=== PATIENT | female | born 1940 | race Caucasian/White ===

== ENCOUNTER 2017-09-25 06:50 | Inpatient (IN) ==
[2017-09-20 11:15] LABS: Basophils # (Auto) 0 K/mcL (0.0-0.3); Basophils % (Auto) 0.6 % (0.0-2.0); Eosinophils # (Auto) 0.2 K/mcL (0.0-0.7); Granulocytes % (Auto) 69.4 % (38.0-78.0); Lymphocytes # (Auto) 1.4 K/mcL (1.5-4.8); Lymphocytes % (Auto) 21.5 % (15.5-49.0); Mean Cell Volume 92.8 fL (80.0-100.0); Mean Corpuscular HGB Conc 33.3 g/dL (31.0-36.0); Mean Corpuscular Hemoglobin 30.9 pg (26.0-34.0); Monocytes # (Auto) 0.4 K/mcL (0.1-0.9); Monocytes % (Auto) 5.5 % (1.0-12.0); Platelet Count 243 K/mcL (140-440); RBC 4.03 M/mcL (4.00-5.20)
[2017-09-20 11:16] LABS: Appearance,Urine HAZY; Bacteria,Urine 0 /hpf (0); Bilirubin,Urine NEG (NEG); Color,Urine YELLOW; Glucose,Urine (UA) NEGATIVE (NEG); Leukocyte Esterase,Urine 250 /uL (NEG); Mucus,Urine MOD /hpf (0); Protein,Urine NEG (NEG); Specific Gravity,Urine 1.027 (1.000-1.035); Urine Blood NEG mg/dL (<0.03); Urine RBC 0 /hpf (0-1); Urine Squamous Epithelial Cell 12 /hpf (0-4); Urine Transitional Epi Cells 2 /hpf (0-2); Urine WBC 3 /hpf (0-4); Urobilinogen,Urine NEG (NEG)
[2017-09-20 11:40] LABS: Blood Urea Nitrogen 16 mg/dl (8-23)
[~2017-09-25 06:50] MED LIST: PREGABALIN 75 MG CAPSULE PO SCH; ceFAZolin 1 GM VIAL IV SCH; oxyCODONE 10 MG TAB.ER.12H PO SCH
[2017-09-25] MEDS ORDERED: CELECOXIB 200 MG CAPSULE PO SCH (08:00)
[2017-09-25] MEDS ORDERED: TRANEXAMIC ACID 1,000 MG/10 ML VIAL IV ONE (09:40)
[2017-09-25] MEDS ORDERED: ePHEDrine 50 MG/ML AMPUL IV ONE (09:40)
[2017-09-25] MEDS ORDERED: LIDOCAINE HCL/PF 100 MG/5 ML SYRINGE IV ONE (09:40)
[2017-09-25] MEDS ORDERED: ONDANSETRON 4 MG/2 ML VIAL IV ONE (09:40)
[2017-09-25] MEDS ORDERED: DEXAMETHASONE 10 MG/ML VIAL IV ONE (09:40)
[2017-09-25] MEDS ORDERED: MIDAZOLAM 5 MG/5 ML VIAL IV ONE (09:40)
[2017-09-25] MEDS ORDERED: PROPOFOL 200 MG/20 ML VIAL IV ONE (09:40)
[2017-09-25] MEDS ORDERED: GENTAMICIN SULFATE 800 MG/20 ML VIAL IR ONE (10:12)
[2017-09-25] MEDS ORDERED: IPRATROPIUM/ALBUTEROL 3 ML AMPUL.NEB NEB PRN (10:55)
[2017-09-25] MEDS ORDERED: NALOXONE HCL 0.4 MG/ML VIAL IV PRN (10:55)
[2017-09-25] MEDS ORDERED: LACTATED RINGERS 250 ML IV PRN (10:55)
[2017-09-25] MEDS ORDERED: FLUMAZENIL 0.1 MG/ML ML IV PRN (10:55)
[2017-09-25] MEDS ORDERED: KETOROLAC 30 MG/ML VIAL IV PRN ×2 (10:55→11:07)
[2017-09-25] MEDS ORDERED: PROMETHAZINE 25 MG/ML VIAL IV PRN (10:55)
[2017-09-25] MEDS ORDERED: ONDANSETRON 4 MG/2 ML VIAL IV PRN ×2 (10:55→11:07)
[2017-09-25] MEDS ORDERED: ACETAMINOPHEN 1,000 MG/100 ML BOTTLE IV ONE (10:55)
[2017-09-25] MEDS ORDERED: BENZOCAINE/MENTHOL 1 LOZENGE PO PRN ×2 (10:55→11:07)
[2017-09-25] MEDS ORDERED: diphenhydrAMINE 50 MG/ML VIAL IV PRN (10:55)
[2017-09-25] MEDS ORDERED: fentaNYL 100 MCG/2 ML VIAL IV PRN (10:55)
[2017-09-25] MEDS ORDERED: MEPERIDINE 25 MG/ML SYRINGE IV PRN (10:55)
[2017-09-25] MEDS ORDERED: LACTATED RINGERS 1,000 ML IV SCH (11:00)
--- NOTE | 2017-09-25 11:06 | Brief Operative Note ---
Date of procedure: 09/25/17 Pre-op diagnosis: right hip oa Post-op diagnosis: same Procedure: right total hip arthroplasty Grafts/Implants: Yes Anesthesia: spinal Complications: none Surgeon: Baldev Montalvo Fur Farmer: Vanda Castaneda Estimated blood loss (cc): 150 Specimens Removed/Pathology: none sent Condition: stable Disposition: PACU
[2017-09-25] MEDS ORDERED: POLYETHYLENE GLYCOL 3350 17 GM PACKET PO PRN (11:07)
[2017-09-25] MEDS ORDERED: DEXTROSE 50% 50 ML VIAL IV PRN (11:07)
[2017-09-25] MEDS ORDERED: BISACODYL 10 MG SUPP.RECT PR PRN (11:07)
[2017-09-25] MEDS ORDERED: ONDANSETRON ODT 4 MG TABLET SL PRN (11:07)
[2017-09-25] MEDS ORDERED: FLEETS ADULT ENEMA PR PRN (11:07)
[2017-09-25] MEDS ORDERED: METHOCARBAMOL 750 MG TABLET PO PRN (11:07)
[2017-09-25] MEDS ORDERED: TRANEXAMIC ACID 1,000 MG/10 ML VIAL IV SCH (11:07)
[2017-09-25] MEDS ORDERED: DEXTROSE 31 GM ORAL.SUSP PO PRN (11:07)
[2017-09-25] MEDS ORDERED: MAGNESIUM HYDROXIDE 30 ML ORAL.SUSP PO PRN (11:07)
--- NOTE | 2017-09-25 11:50 | Operative Note ---
DATE OF OPERATION: 09/25/2017 PREOPERATIVE DIAGNOSIS: Degenerative joint disease, right hip. POSTOPERATIVE DIAGNOSIS: Degenerative joint disease, right hip. PROCEDURE: Right total hip arthroplasty. SURGEON: Tremayne Montalvo M.D. HYDRAULIC CONTROLS TECHNICIAN SURGEON: Vanda Castaneda PA-C. ANESTHESIA: Spinal with LMA assist. ESTIMATED BLOOD LOSS: 150 mL. COMPLICATIONS: None noted. SPECIMENS REMOVED: None. DRAINS: None. IMPLANTS: DePuy Reading Hole Eliminator; DePuy [place] Gription acetabular shell, 52 mm; DePuy [place] Altrx polyethylene acetabular liner, lipped, 32 x 52; DePuy Tri-Lock BPS femoral stem with Gription, size 2, high-offset; DePuy Biolox ceramic femoral head +1, 32 mm diameter. INDICATIONS: The patient has had a longstanding history of worsening pain in the hip that has failed conservative treatment. Radiographs have confirmed advanced degenerative joint disease. After a long discussion about treatment options, the patient elected to proceed with a hip arthroplasty. The risks and benefits were discussed with the patient in detail including, but not limited to, the risks of anesthesia, problems with the heart or lungs related to anesthesia, infection, compromise or injury to the nerves and blood vessels, deep venous thrombosis, pulmonary embolism, pneumonia, continued pain after surgery, worsening pain or symptoms after surgery, swelling, loss of motion, instability, leg length discrepancy, and need for repeat surgery. DESCRIPTION OF PROCEDURE: The patient was seen in pre-anesthesia waiting room where all questions were answered and the correct side and site were identified and marked. The patient was then brought to the operating room and administered the anesthetic and given pre-operative antibiotics. A time-out was then called. The patient was placed in the lateral decubitus position with all prominences well-padded using the [place] frame and the extremity was prepped and draped in the usual sterile fashion. Anesthesia gave the patient 1 gm of tranexamic acid via an intravenous route. A standard posterior approach was made. We dissected through the skin and subcutaneous tissue to the deep fascia. The deep fascia was split in line with the incision and a Charnley retractor was placed. We exposed, tagged, and incised the short external rotators and piriformis tendon and retracted them posteriorly to help protect the sciatic nerve which was palpated throughout the case. We then performed a T-capsulotomy and tagged the capsule edges. Prior to dislocating the hip, we set a length and offset gauge from a Steinmann pin in the iliac wing to a alison on the greater trochanter. The hip was then dislocated and a femoral neck osteotomy was performed to the pre-surgical templated level off the lesser trochanter. The head was removed and sized. We next turned our attention to the acetabulum. Retractors were placed for optimal visualization. A complete labral excision was performed. The capsule was preserved for later closure. We began reaming using anatomic landmarks with the DePuy [place] acetabular system. We medialized the cup and reamed up to provide good fill and coverage of the trial. When the trial was stable and appropriately positioned with approximately 20 degrees of anteversion and 45 degrees of abduction, we impacted the DePuy [place] cup and placed a cancellous screw in the posterior-superior quadrant. Osteophytes were removed from around the shell. We placed the trial liner and turned our attention to the femur. We placed retractors for visualization, internally rotated the femur, and established intramedullary access. We broached using the DePuy Tri-Lock stem to a stable platform medial, lateral, and rotationally with the appropriate version. We then performed a calcar reaming off the broach. Trials were then placed and optimized for leg length and stability. We used the leg length and offset guide to confirm our trials. Best stability, length, and offset characteristics were obtained with these sizes. We removed all trials and impacted the polyethylene acetabular liner in a standard fashion after a thorough irrigation. We then impacted the femoral stem to its broached location and placed the head. Final reduction was performed. Again, good stability, leg length, and offset characteristics were noted. We irrigated with three liters of antibiotic saline. We closed the capsule with #2 FiberWire. We closed the fascia with a combination of #2 Stratafix and #0 Vicryl. We closed the subcutaneous tissue and skin in layers out to rfay in the skin. A sterile pressure dressing and abduction wedge was applied. All needle and sponge counts were correct. The patient was transferred to the recovery room in stable condition. Kyle Job ID: [id number] Doc ID: [id number] Tremayne Montalvo MD
[2017-09-25] MEDS ORDERED: PRAMIPEXOLE 1 MG TABLET PO SCH (12:00)
--- NOTE | 2017-09-25 12:18 | XRay Report ---
CLINICAL INFORMATION: Status post right total hip arthroplasty TECHNIQUE: AP pelvis. AP and lateral right hip COMPARISON: Preoperative evaluation dated 07/13/2017 FINDINGS: Status post right total hip arthroplasty. Alignment is anatomic. Pelvis is negative. No fracture or lytic lesion. Degenerative disc disease in the lower lumbar spine. Mild degenerative joint disease in the left hip. IMPRESSION: Status post right total hip arthroplasty Interpreted and Authenticated by: Baldev Prado 09/25/17
[2017-09-25] MEDS: 0.9 % SODIUM CHLORIDE 10 ML SYRINGE IV SCH ×2 (14:05→20:56)
[2017-09-25] MEDS: 0.9 % SODIUM CHLORIDE 1,000 ML IV SCH ×2 (14:05→21:34)
[2017-09-25] MEDS: PRAMIPEXOLE 0.25 MG TABLET PO SCH ×2 (15:33→19:26)
[2017-09-25] MEDS: INSULIN LISPRO 1 UNIT/0.01 ML UNIT SQ SCH ×3 (15:33→19:31)
[2017-09-25] MEDS: HYDROcodone/APAP 10/325MG TABLET PO PRN ×2 (16:13→20:51)
[2017-09-25] MEDS: ceFAZolin 1 GM VIAL IV SCH (17:15)
[2017-09-25] MEDS: metFORMIN 500 MG TABLET PO SCH (17:18)
[2017-09-25] MEDS: DOCUSATE SODIUM 100 MG CAPSULE PO SCH (19:27)
[2017-09-25] MEDS: ASPIRIN 325 MG ENTERIC COATED TABLET PO SCH (19:27)
[2017-09-25] MEDS ORDERED: ROSUVASTATIN 10 MG TABLET PO SCH (21:00)
[2017-09-25] MEDS ORDERED: SENNOSIDES 1 TABLET PO SCH (21:00)
[2017-09-25] MEDS ORDERED: LOSARTAN 50 MG TABLET PO SCH (21:00)
[2017-09-25] MEDS ORDERED: GABAPENTIN 300 MG CAPSULE PO SCH (21:00)
[2017-09-25] MEDS ORDERED: PRAMIPEXOLE DI HCL 4.5 MG PO SCH (21:00)
[2017-09-26] MEDS: HYDROcodone/APAP 10/325MG TABLET PO PRN (00:48)
[2017-09-26] MEDS: ceFAZolin 1 GM VIAL IV SCH (00:48)
[2017-09-26] MEDS ORDERED: CELECOXIB 200 MG CAPSULE PO SCH (05:00)
[2017-09-26] MEDS: 0.9 % SODIUM CHLORIDE 10 ML SYRINGE IV SCH (05:07)
[2017-09-26] MEDS: 0.9 % SODIUM CHLORIDE 1,000 ML IV SCH (05:07)
--- NOTE | 2017-09-26 06:24 | Discharge Summary ---
Providers - Providers Patient information: Note initiated : 09/26/17 at 6:21 am Service Date, if different from initiated Date: [] Patient: Nicole Sherman 77 y/o F admitted on 09/25/17 for Arthroplasty, Total Hip - Right. Chief Complaint: [POD #1 s/p right CRISTINA Patient doing very well this morning. Reports minimal pain in her right hip. Ambulating okay with walker. States that hydrocodone 10mg is too strong, would like something less potent. Denies SOB, CP, numbness, tingling or calf pain in the extremities. No other questions or concerns today.] Discharge date: 09/26/17 Hospitalization Hospital course: Patient was brought to the OR yesterday for a right CRISTINA which went on without complication or event. She was admitted overnight for post op pain management and observation. She is ambulating and urinating without difficulty. She will d/ c to home today and follow up in the office in 10-14 days for post op appointment. Discharge diagnosis: hip osteoarthritis Exam - Exam Incision healing: Yes Incision draining: No Incision red: No Incision swollen: No Incision inflamed: No Clean and dry: Yes Weight bearing status: as tolerated Range of motion: 120 hip flexion. Full AROM b/l knees, ankles, feet Ortho Discharge - CRISTINA - Patient Instructions Diet: Regular Diet Activity: activity as tolerated, ambulate with assistive device, weight bearing as tolerated Total Hip Protocol: Follow activity instructions as provided by Physical Therapy. Dressing Care: May shower in 2 days, Other (dermabond) - Follow Up Plan Follow Up Appointments: Vanda Castaneda PA-C [Physician Record Filing Clerk] - Disposition: Home, Self-Care Prognosis: Good Rehab Potential: Good I certify that the patient requires SNF services: No Overall status at discharge: patient is progressing back to baseline - Orders For Discharge Prescriptions: Aspirin [Ecotrin] 325 mg PO BID #60 tab.ec Hydrocodone/APAP 7.5/325Mg [[place] 7.5-325Mg] 1 - 2 tab PO Q6HP PRN #60 tab PRN Reason: Pain Additional Discharge Orders: Physical Therapy at Discharge - CRISTINA Location: Determined By Patient Pending Studies Resuscitation Status Full Code Diet Regular Diet Start SunSep 25 1111 Hydrocodone Bitart/Acetaminophen ([place] 10/325mg) 0 tab PO Q4HP PRN PRN Reason: PAIN LEVEL 3-6 Last Admin: 09/26/17 00:48 Dose: 1 tab Admin: 09/25/17 20:51 Dose: 1 tab Admin: 09/25/17 16:13 Dose: 1 tab Aspirin (Ecotrin) 325 mg PO BID [facility] Last Admin: 09/25/17 19:27 Dose: 325 mg Diagnostic Test (Pha) (Accu-Chek) 1 each FS ACHS [facility] Last Admin: 09/25/17 19:27 Dose: 1 each Admin: 09/25/17 17:16 Dose: 1 each Admin: 09/25/17 14:04 Dose: 1 each Docusate Sodium (Colace) 100 mg PO BID [facility] Last Admin: 09/25/17 19:27 Dose: 100 mg Gabapentin (Neurontin) 300 mg PO [facility] Last Admin: 09/25/17 19:27 Dose: 300 mg Sodium Chloride (Sodium Chloride 0.9%) 1,000 mls @ 125 mls/hr IV .Q8H [facility] Last Admin: 09/26/17 05:07 Dose: Not Given Admin: 09/25/17 21:34 Dose: 125 mls/hr Infusion: 09/25/17 21:34 Dose: 125 mls/hr Admin: 09/25/17 14:05 Dose: 125 mls/hr Insulin Human Lispro (Humalog) 0 unit SQ [facility] PRN Reason: Protocol Last Admin: 09/25/17 19:31 Dose: 4 unit Admin: 09/25/17 17:17 Dose: 8 unit Admin: 09/25/17 15:33 Dose: Losartan Potassium (Cozaar) 100 mg PO [facility] Last Admin: 09/25/17 19:27 Dose: 100 mg Metformin HCl (Glucophage) 1,000 mg PO BIDCC [facility] Last Admin: 09/25/17 17:18 Dose: 1,000 mg Pramipexole Dihydrochloride (Mirapex) 1.5 mg PO TID [facility] Last Admin: 09/25/17 19:26 Dose: 1.5 mg Admin: 09/25/17 15:33 Dose: 1.5 mg Rosuvastatin Calcium (Crestor) 20 mg PO [facility] Last Admin: 09/25/17 19:27 Dose: Not Given Senna (Senokot) 2 tab PO [facility] Last Admin: 09/25/17 19:26 Dose: 2 tab Sodium Chloride (Saline Flush) 10 ml IV Q8 [facility] Last Admin: 09/26/17 05:07 Dose: Admin: 09/25/17 20:56 Dose: Not Given Admin: 09/25/17 14:05 Dose: Not Given Shift Summary 09/26/17 04:53 Shift Summary by Evelyn Weston Addendum entered by Evelyn Weston 09/26/17 05:08: no IV access d/t infiltration, edema noted but pt denied pain and refused restart d/t plans to d/c home today with family and friend Original Note: Addendum entered by Evelyn Weston 09/26/17 04:57: correction patient is receiving norco 10/325mg 1 tab but pt would like dose decreased if possible stating it makes her feel "loopy" Original Note: up w/SBA and FWW to BR, PVR minimal, amb. well, gait steady, DSG CDI to rt. hip , ice packs PRN, AVB and wedge used continuously per order while in bed, pt states she does cross her ankles constantly so prefers wedge use, medicated with lortab 7.5/325mg 1 tab approx. q4-5 hours which controls pain well, MIV infusing well will SL prior to shift change, uses IS well on own Initialized on 09/26/17 04:53 - END OF NOTE Exam Temp Pulse Resp BP Pulse Ox 97.8 F 82 18 120/64 91 09/26/17 04:00 09/26/17 04:00 09/26/17 04:00 09/26/17 04:00 09/26/17 04:00 - General physical appearance well developed, no distress - Cardiovascular Peripheral pulses: 2+: dorsalis pedis (L), dorsalis pedis (R), posterior tibialis (L), posterior tibialis (R) - Neurologic Present: normal sensation (all extremities NVI) - Psychiatric Present: oriented to time, oriented to person, oriented to place - Additional Findings hip x-ray right hip reviewed, shows CRISTINA in good position without fractures or other injuries. No other acute abnormalities are identified.
[2017-09-26] MEDS ORDERED: HYDROCODONE/APAP 7.5/325MG TABLET PO PRN (06:32)
[2017-09-26] MEDS: INSULIN LISPRO 1 UNIT/0.01 ML UNIT SQ SCH (07:16)
[2017-09-26] MEDS: metFORMIN 500 MG TABLET PO SCH (07:52)
[2017-09-26] MEDS: DOCUSATE SODIUM 100 MG CAPSULE PO SCH (08:24)
[2017-09-26] MEDS: ASPIRIN 325 MG ENTERIC COATED TABLET PO SCH (08:24)
[2017-09-26] MEDS: PRAMIPEXOLE 0.25 MG TABLET PO SCH (08:24)
[2017-09-26] MEDS ORDERED: PARoxetine 20 MG TABLET PO SCH (09:00)
[2017-09-26] MEDS ORDERED: PRAMIPEXOLE DI HCL 4.5 MG PO SCH (09:00)
[2017-09-26] MEDS ORDERED: PNEUMOCOCCAL 23-VAL P-SAC VAC 0.5 ML VIAL IM ONE (10:00)
== END 2017-09-26 11:00 | disposition home or self-care (01) | DRG 470 ==
LOC: MEDSUR 06:50
PROVIDERS: ADMIT Orthopaedic Surgery Sports Medicine; ATTEND Orthopaedic Surgery Sports Medicine

== ENCOUNTER 2017-11-08 07:00 | Observation (INO) ==
--- NOTE | 2017-11-08 07:20 | Emergency Department Note ---
SOB HPI - General Chief Complaint: Shortness of Breath/Dyspnea Stated Complaint: SOB Time Seen by Provider: 11/08/17 07:13 Source: patient Mode of arrival: wheelchair Limitations: no limitations - History of Present Illness This patient had right hip surgery a little over a month ago and developed an infection and has been getting an infusion of antibiotics. He is a little short of breath when lying down over the last couple of days and so patient sent her here before her infusion today. Said no cough. Some right leg edema on and off perhaps a little worse recently. No chest pain. She does have a history of COPD but has not been wheezing much except when she lies flat. No history of heart failure. - Related Data Home Medications Medication Instructions Recorded Confirmed losartan 100 mg tablet 100 mg PO HS 10/21/15 10/18/17 paroxetine 40 mg tablet 40 mg PO QDAY 10/21/15 10/18/17 rosuvastatin 20 mg tablet 20 mg PO HS 04/23/17 10/18/17 gabapentin 300 mg capsule 300 mg PO HS 90 Days #360 08/27/17 10/18/17 Diclofenac Sodium [Voltaren] 2 g TOPICAL BIDP PRN 09/20/17 10/18/17 metFORMIN [Glucophage] 1,000 mg PO BIDCC 09/20/17 10/18/17 Pramipexole [Mirapex] 1.5 mg PO TID 09/25/17 10/18/17 Sulfamethoxazole/Trimethoprim 1 each PO BID 10/16/17 10/18/17 [Bactrim Ds Tablet] Previous Rx's Medication Instructions Recorded Aspirin [Ecotrin] 325 mg PO BID #60 tab.ec 09/26/17 Hydrocodone/APAP 7.5/325Mg [[place] 1 - 2 tab PO Q6HP PRN #60 tab 09/26/17 7.5-325Mg] Vancomycin/0.9 % Sod Chloride 1 gm IV DAILY #60 plast..bag 10/17/17 [Vancomycin 1 G/100Ml-0.9% NaCl] cefTRIAXone NA/DEXTROSE,ISO 1 gm IV DAILY #42 [email or web address] 10/17/17 [Ceftriaxone 1 gm Piggyback] Allergies Allergy/AdvReac Type Severity Reaction Status Date / Time atorvastatin [From Lipitor] AdvReac Intermediate Muscle ache Verified 11/08/17 07:01 simvastatin AdvReac Intermediate Muscle ache Verified 11/08/17 07:01 benazepril AdvReac Mild Cough Verified 11/08/17 07:01 codeine AdvReac Mild Vomiting Verified 11/08/17 07:01 Review of Systems All systems ED: reviewed and negative except as stated. Past Medical History - Past Medical History [facility] Narrative: Medical History (Last Reviewed 08/27/17 @ 08:05 by Marylou Jean RN) Psoriasis (Acute) Inflammatory arthritis (Chronic) Positive ANATOLIY (antinuclear antibody) (Acute) Erosive osteoarthritis of both hands (Chronic) Encounter for long-term current use of high risk medication (Chronic) Arthralgia of hands, bilateral (Chronic) Osteoarthritis (Chronic) Pain in left hip (Chronic) Pain in hand (Chronic) Hypertension, benign (Chronic) Anxiety (Chronic) Esophageal reflux (Chronic) Impaired fasting glucose (Chronic) OSBALDO (obstructive sleep apnea) (Chronic) HSV infection (Chronic) Colonic polyp (Chronic) Kidney stone (Chronic) RLS (restless legs syndrome) (Chronic) Depression (Chronic) Hypertension (Chronic) Hypercholesterolemia (Chronic) Past Surgical History (Last Reviewed 08/27/17 @ 08:05 by Marylou Jean RN) Hx of shoulder surgery (Chronic) Family History (Last Reviewed 08/27/17 @ 08:05 by Marylou Jean RN) Father Malignant neoplasm of colon Eaton-Lambert syndrome Paternal grandmother Eaton-Lambert syndrome Malignant neoplasm of breast Medical history: Reports: hyperlipidemia, hypertension Surgical history ED: Reports: hip replacement, other (Recent right hip replacement) - Social History smoking status: Never smoker Alcohol use: Reports: Occasionally Drug use: Reports: none Physical Exam Limitations: no limitations General appearance: alert Head: atraumatic Eye: Present: normal appearance ENT: normal exam Neck: Present: normal inspection Chest: Present: normal inspection Respiratory: Present: normal lung sounds bilaterally Cardiovascular: Present: regular rate, normal rhythm, normal heart sounds Abdominal: Present: soft. Absent: distention, tenderness Extremities: Present: pedal edema, pretibial edema (On the right leg) Neurological: Present: alert Psychiatric: Present: normal affect, normal mood Skin: Present: warm, dry, intact Course Vital Signs Temperature 96.7 F L 11/08/17 07:01 Pulse Rate 79 11/08/17 07:01 Respiratory Rate 16 11/08/17 07:01 Blood Pressure 177/75 11/08/17 07:01 Pulse Oximetry (%) 96 11/08/17 07:01 Temperature 96.7 F L 11/08/17 07:01 Pulse Rate 78 11/08/17 08:51 Respiratory Rate 26 H 11/08/17 08:51 Blood Pressure 177/75 11/08/17 07:01 Pulse Oximetry (%) 94 11/08/17 08:51 Shortness of Breath/Dyspnea - [facility] Narrative Medical decision making narrative: Patient's chest x-ray was consistent with congestive heart failure and BNP is 900. Doppler of the right leg was negative for DVT. Heart failure is a new diagnosis for this patient. I discussed case with Dr. Almodovar and the patient will be admitted to telemetry for further evaluation and treatment. - Lab Data Lab results reviewed: Yes I reviewed the patient's lab results. Result diagrams: 11/08/17 07:33 11/08/17 07:33 Lab Results 11/08/17 11/08/17 11/08/17 Range/Units 07:33 07:33 07:33 WBC 5.4 (4.5-11.0) K/mcL RBC 3.32 L (4.00-5.20) M/mcL Hgb 9.5 L (12.0-15.0) g/dL Hct 29.7 L (36.0-48.0) % MCV 89.7 (80.0-100.0) fL MCH 28.6 (26.0-34.0) pg MCHC 31.9 (31.0-36.0) g/dL RDW 15.5 H (11.5-14.5) % Plt Count 242 (140-440) K/mcL MPV 7.4 (7.4-10.4) fL Gran % 68.7 (38.0-78.0) % Lymph % (Auto) 14.8 L (15.5-49.0) % [place] % (Auto) 9.9 (1.0-12.0) % Eos % (Auto) 5.9 (0.0-7.0) % Baso % (Auto) 0.7 (0.0-2.0) % Gran # 3.7 (1.8-8.0) K/mcL Lymph # (Auto) 0.8 L (1.5-4.8) K/mcL [place] # (Auto) 0.5 (0.1-0.9) K/mcL Eos # (Auto) 0.3 (0.0-0.7) K/mcL Baso # (Auto) 0 (0.0-0.3) K/mcL Sodium 142 (133-145) mmol/L Potassium 3.1 L (3.3-5.1) mmol/L Chloride 97 (96-108) mmol/L Carbon Dioxide 34 H (22-30) mmol/L Anion Gap 11.0 (8-16) BUN 7 L (8-23) mg/dl Creatinine 0.6 (0.6-1.1) mg/dl GFR Calculation 89 Glucose 152 H (70-105) mg/dL Calcium 8.6 (8.6-10.4) mg/dl Total Bilirubin 0.3 (0.0-1.0) mg/dL AST 16 (0-37) U/l ALT 14 (0-40) U/l Alkaline Phosphatase 77 (39-117) U/L Troponin T < 0.01 (0-0.03) ng/ml NT-Pro-B Natriuret Pep 919.2 H (0-450) pg/ml Total Protein 6.7 (5.9-8.4) gm/dL Albumin 4.1 (3.2-5.2) gm/dL Globulin 2.6 (2.2-3.7) gm/dL Albumin/Globulin Ratio 1.6 (1.0-2.3) - Radiology Data Radiology results reviewed: Yes I reviewed the patient's radiology results. Disposition Pt seen by NEWCOMER HOSTESS/PA only: No Clinical Impression: Congestive heart failure Disposition: Xfer As Inpt ([facility]) Condition: Good Referrals: Colleen Pittman MD [Primary Care Provider] - Time of Disposition: 08:58
[2017-11-08 08:15] LABS: Basophils # (Auto) 0 K/mcL (0.0-0.3); Basophils % (Auto) 0.7 % (0.0-2.0); Eosinophils # (Auto) 0.3 K/mcL (0.0-0.7); Eosinophils % (Auto) 5.9 % (0.0-7.0); Granulocytes % (Auto) 68.7 % (38.0-78.0); Lymphocytes # (Auto) 0.8 K/mcL (1.5-4.8); Lymphocytes % (Auto) 14.8 % (15.5-49.0); Mean Cell Volume 89.7 fL (80.0-100.0); Mean Corpuscular HGB Conc 31.9 g/dL (31.0-36.0); Mean Corpuscular Hemoglobin 28.6 pg (26.0-34.0); Monocytes # (Auto) 0.5 K/mcL (0.1-0.9); Monocytes % (Auto) 9.9 % (1.0-12.0); Platelet Count 242 K/mcL (140-440); RBC 3.32 M/mcL (4.00-5.20); Red Cell Distribution Width 15.5 % (11.5-14.5)
--- NOTE | 2017-11-08 08:32 | XRay Report ---
HISTORY: Reason for Exam:sob FINDINGS: There are mild generalized alveolar opacities in both lungs. Several curly B lines are present in the periphery of the right lower lobe. The heart is mildly enlarged. The pulmonary vessels are engorged. No pleural is present. There is a PICC line placed to the left arm into the superior vena cava. The tip of the catheter is looped at the level of the azygos arch. IMPRESSION: Congestive heart failure which has developed since 10/17/17 Interpreted and Authenticated by: Felix Hinojosa 11/08/17
[2017-11-08 08:37] LABS: ALT/SGPT 14 U/l (0-40); Albumin 4.1 gm/dL (3.2-5.2); Albumin/Globulin Ratio 1.6 (1.0-2.3); Alkaline Phosphatase 77 U/L (39-117); Blood Urea Nitrogen 7 mg/dl (8-23); proBNP 919.2 pg/ml (0-450)
--- NOTE | 2017-11-08 08:41 | Ultrasound Report ---
History: Shortness of breath, two months following hip replacement, evaluate leg for deep venous thrombosis Findings: There is normal augmentation and compressibility of the deep veins and greater saphenous vein from the groin through the calf. Doppler shows normal waveform patterns. No abnormal fluid collection is present. Impression: Normal exam, without evidence of deep venous thrombosis Interpreted and Authenticated by: Felix Hinojosa 11/08/17
[2017-11-08] MEDS ORDERED: ONDANSETRON 4 MG/2 ML VIAL IV ONE (08:43)
[2017-11-08] MEDS ORDERED: FUROSEMIDE 20 MG/2 ML VIAL IV ONE (08:57)
[2017-11-08] MEDS ORDERED: DICLOFENAC SODIUM 2% TOPICAL PRN (10:45)
[2017-11-08] MEDS ORDERED: VANCOMYCIN PER PHARMACY IV SCH (10:45)
[2017-11-08] MEDS ORDERED: DEXTROSE 31 GM ORAL.SUSP PO PRN (10:45)
[2017-11-08] MEDS ORDERED: DEXTROSE 50% 50 ML VIAL IV PRN (10:45)
[2017-11-08] MEDS ORDERED: ONDANSETRON 4 MG/2 ML VIAL IV PRN (10:45)
--- NOTE | 2017-11-08 10:51 | Internal Med History&Physical ---
Medical - H&P: HPI Patient information: Note initiated : 11/08/17 at 10:47 am Service Date, if different from initiated Date: [] Patient: Nicole Sherman a 77 y/o F admitted on 11/08/17 for Shortness of breath. Chief Complaint: [] History of present illness: Ms. Sherman is a 77 year old Female with h/o HTN, recent right hip septic arthritis , on IV ABX per ortho, presented to the ER today with complaints of breath that has been going on for the last week to 2 weeks. The patient notes that she has been short of breath at rest especially when she tries to lie down and sleep. She has to use extra number of pillows and wakes up feeling short of breath. The patient has intermittent dizziness especially when she tries to stand up. Otherwise she denies any other complaints. She denies any acute bilateral lower extremity edema, she has a right leg edema since she has had surgery on the right hip. She denies any palpitations chest pain or chest tightness. No syncope or presyncope-like symptoms. She denies any nausea vomiting abdominal pain. She has poor effort tolerance at baseline due to arthritis and recent hip surgery. She usually is just in the bed with minimal activity. But she has noticed that she is more breathless with activity compared to before. She denies any cough fever any GI or symptoms. No new skin rashes or arthralgias , she does have history of chronic osteoarthritis. Patient admits to having some depression which is reasonably controlled on oral medications denies any suicidal ideations. Given that her shortness of breath was acute she was sent to the emergency room for further evaluation. The patient notes that her pressures have been running high over the last couple weeks. The emergency room patient was hemodynamically stable, and saturation around 90 % on room air labs showed globin of 9.5, bnp 919 Chest x ray shows chf, new, EKG done in the ER shows non specific St wave changes ant and lateral leads, no significant change from previous ekg, trop is neg Pt is beign admitted to the hospital under obs status for new onset CHF. All systems: reviewed and no additional remarkable complaints except as stated ( As per HPI) Medical - H&P: PMH Medical history: Medical History (Last Reviewed 08/27/17 @ 08:05 by Marylou Jean RN) Psoriasis (Acute) Inflammatory arthritis (Chronic) Positive ANATOLIY (antinuclear antibody) (Acute) Erosive osteoarthritis of both hands (Chronic) Encounter for long-term current use of high risk medication (Chronic) Arthralgia of hands, bilateral (Chronic) Osteoarthritis (Chronic) Pain in left hip (Chronic) Pain in hand (Chronic) Hypertension, benign (Chronic) Anxiety (Chronic) Esophageal reflux (Chronic) Impaired fasting glucose (Chronic) OSBALDO (obstructive sleep apnea) (Chronic) HSV infection (Chronic) Colonic polyp (Chronic) Kidney stone (Chronic) RLS (restless legs syndrome) (Chronic) Depression (Chronic) Hypertension (Chronic) Hypercholesterolemia (Chronic) Surgical history: Past Surgical History (Last Reviewed 08/27/17 @ 08:05 by Marylou Jean RN) Hx of shoulder surgery (Chronic) Right surgery recent Pertinent family history: Family History (Last Reviewed 08/27/17 @ 08:05 by Marylou Jean RN) Father Malignant neoplasm of colon Eaton-Lambert syndrome Paternal grandmother Eaton-Lambert syndrome Malignant neoplasm of breast Medical - H&P: Meds Home Medications Medication Instructions Recorded Confirmed Type losartan 100 mg tablet 100 mg PO HS 10/21/15 11/08/17 History paroxetine 40 mg tablet 40 mg PO QDAY 10/21/15 11/08/17 History rosuvastatin 20 mg tablet 20 mg PO HS 04/23/17 11/08/17 History gabapentin 300 mg capsule 300 mg PO HS 90 Days #360 08/27/17 11/08/17 History Diclofenac Sodium [Voltaren] 2 g TOPICAL BIDP PRN 09/20/17 11/08/17 History metFORMIN [Glucophage] 1,000 mg PO BIDCC 09/20/17 11/08/17 History Pramipexole [Mirapex] 1.5 mg PO TID 09/25/17 11/08/17 History Aspirin [Ecotrin] 325 mg PO BID #60 tab.ec 09/26/17 11/08/17 Rx Vancomycin/0.9 % Sod Chloride 1 gm IV DAILY #60 plast..bag 10/17/17 11/08/17 Rx [Vancomycin 1 G/100Ml-0.9% NaCl] cefTRIAXone NA/DEXTROSE,ISO 1 gm IV DAILY #42 [email or web address] 10/17/17 11/08/17 Rx [Ceftriaxone 1 gm Piggyback] Allergies Allergy/AdvReac Type Severity Reaction Status Date / Time atorvastatin [From Lipitor] AdvReac Intermediate Muscle ache Verified 11/08/17 07:01 simvastatin AdvReac Intermediate Muscle ache Verified 11/08/17 07:01 benazepril AdvReac Mild Cough Verified 11/08/17 07:01 codeine AdvReac Mild Vomiting Verified 11/08/17 07:01 Medical - H&P: Exam - Constitutional Vitals: Temp Pulse Resp BP Pulse Ox 96.7 F L 106 H 18 159/72 90 11/08/17 07:01 11/08/17 10:28 11/08/17 10:28 11/08/17 10:28 11/08/17 10:28 Exam: GENERAL: The patient is a well-developed, well-nourished in no apparent distress. Is alert and oriented x3. VITAL SIGNS: Reviewed and as noted elsewhere. HEENT: Head is normocephalic and atraumatic. Extraocular muscles are intact. Pupils are equal, round, and reactive to light. Nares appeared normal. Mouth appears any without lesions. Mucous membranes are moist. NECK: Normal to inspection, Supple, No lymphadenopathy or thyromegaly. LUNGS: Air entry equal on both sides, no wheezing, patient did have bilateral inspiratory crackles at the bases, she was able to speak full sentences no accessory muscle use. HEART: Regular rate and rhythm normal, S1 and S2 heard, no Gallop, S3 or Rub Noted, systolic murmur aortic region grade 3, raised JVP. ABDOMEN: Soft, nontender, and nondistended. Positive bowel sounds. No hepatosplenomegaly was noted. EXTREMITIES: No cyanosis, clubbing, rash, lesions, right extremity was edematous , NEUROLOGIC: Cranial nerves II through XII are grossly intact. Motor and Sensory System Grossly Intact PSYCHIATRIC: Normal affect, Normal Mood. Appropriate Behavior. SKIN: No ulceration or wounds noted, No jaundice, No rash noted. Medical - H&P: Reslt - Labs CBC & Chem 7: 11/08/17 07:33 11/08/17 07:33 Labs: Short CBC 11/08/17 Range/Units 07:33 WBC 5.4 (4.5-11.0) K/mcL Hgb 9.5 L (12.0-15.0) g/dL Hct 29.7 L (36.0-48.0) % Plt Count 242 (140-440) K/mcL BMP 11/08/17 07:33 Sodium 142 Potassium 3.1 L Chloride 97 Carbon Dioxide 34 H BUN 7 L Creatinine 0.6 Glucose 152 H Calcium 8.6 Cardiac Enzymes 11/08/17 Range/Units 07:33 Troponin T < 0.01 (0-0.03) ng/ml Liver Function 11/08/17 Range/Units 07:33 Total Bilirubin 0.3 (0.0-1.0) mg/dL AST 16 (0-37) U/l ALT 14 (0-40) U/l Alkaline Phosphatase 77 (39-117) U/L Albumin 4.1 (3.2-5.2) gm/dL Medical - H&P: A/P - Narrative A/P Narrative: A/P New onset CHF: X-ray suggestive of CHF, raised JVP, patient did not have significant cardiomegaly on the x-ray. Get an echocardiogram, check TSH. Start on Lasix. Patient does not wish to have a [place] Toro catheter. Patient will need evaluation by a population geneticist as an outpatient for further evaluation for possible coronary artery disease. Septic ARthritis: Status post washout, on IV vancomycin and Rocephin will continue same Anemia: Likely anemia of chronic disease follow-up as outpatient. HTN: BP on the higher end of normal, on losartan, will get the echocardiogram , titrate BP medications HLD: Continue statin DM: Hold metformin, sliding scale insulin DVT-heparin subcutaneous Diet and carb consistent diet and a cardiac diet Code-full code Social History - Social History marital status: - Tobacco smoking status: Never smoker - Alcohol alcohol intake frequency: does not drink
[2017-11-08 11:20] LABS: Estimated Average Glucose(eAG) 117 mg/dL; Hemoglobin A1C 5.7 % HGB (4.0-6.0)
[2017-11-08] MEDS: INSULIN LISPRO 1 UNIT/0.01 ML UNIT SQ SCH ×3 (12:07→20:26)
[2017-11-08] MEDS: ACETAMINOPHEN 325 MG TABLET PO PRN (13:32)
[2017-11-08] MEDS: IPRATROPIUM/ALBUTEROL 3 ML AMPUL.NEB NEB SCH ×2 (13:44→19:56)
[2017-11-08] MEDS: 0.9 % SODIUM CHLORIDE 10 ML SYRINGE IV SCH ×4 (15:00→21:18)
[2017-11-08] MEDS: PRAMIPEXOLE 1 MG TABLET PO SCH ×2 (15:04→20:26)
[2017-11-08] MEDS ORDERED: POTASSIUM CHLORIDE 20 MEQ PACKET PO ONE (15:16)
[2017-11-08] MEDS ORDERED: MAGNESIUM SULFATE 2 GM/50 ML BAG IV ONE (16:51)
[2017-11-08] MEDS: FUROSEMIDE 20 MG/2 ML VIAL IV SCH (17:25)
[2017-11-08] MEDS: LOSARTAN 50 MG TABLET PO SCH (20:25)
[2017-11-08] MEDS: HEPARIN 5,000 UNIT/ML VIAL SQ SCH (20:26)
[2017-11-08] MEDS: GABAPENTIN 300 MG CAPSULE PO SCH (20:26)
[2017-11-08] MEDS: ROSUVASTATIN CALCIUM 20 MG PO SCH (20:27)
[2017-11-08] MEDS: VANCOMYCIN 1,500 MG in 0.9 % SODIUM CHLORIDE 500 ML IV SCH (20:27)
[2017-11-09] MEDS: IPRATROPIUM/ALBUTEROL 3 ML AMPUL.NEB NEB SCH ×4 (01:19→19:31)
[2017-11-09] MEDS: ACETAMINOPHEN 325 MG TABLET PO PRN ×3 (02:05→22:35)
[2017-11-09 04:54] LABS: Basophils # (Auto) 0 K/mcL (0.0-0.3); Basophils % (Auto) 0.6 % (0.0-2.0); Eosinophils # (Auto) 0.4 K/mcL (0.0-0.7); Eosinophils % (Auto) 7.6 % (0.0-7.0); Granulocytes % (Auto) 62.7 % (38.0-78.0); Lymphocytes # (Auto) 0.8 K/mcL (1.5-4.8); Lymphocytes % (Auto) 16.3 % (15.5-49.0); Mean Cell Volume 89.2 fL (80.0-100.0); Mean Corpuscular HGB Conc 31.3 g/dL (31.0-36.0); Mean Corpuscular Hemoglobin 27.9 pg (26.0-34.0); Monocytes # (Auto) 0.6 K/mcL (0.1-0.9); Monocytes % (Auto) 12.8 % (1.0-12.0); Platelet Count 235 K/mcL (140-440); Red Cell Distribution Width 15.2 % (11.5-14.5)
[2017-11-09] MEDS: 0.9 % SODIUM CHLORIDE 10 ML SYRINGE IV SCH ×5 (05:22→21:54)
[2017-11-09 05:56] LABS: ALT/SGPT 12 U/l (0-40); Albumin 3.8 gm/dL (3.2-5.2); Albumin/Globulin Ratio 1.8 (1.0-2.3); Alkaline Phosphatase 66 U/L (39-117); Bilirubin,Direct < 0.2 mg/dL (0.0-0.3); Blood Urea Nitrogen 6 mg/dl (8-23); Gamma Glutamyl Transpeptidase 20 U/L (5-36); Uric Acid 2.6 mg/dL (2.5-8.0)
[2017-11-09] MEDS ORDERED: POTASSIUM CHLORIDE 20 MEQ PACKET PO ONE (07:18)
[2017-11-09] MEDS: INSULIN LISPRO 1 UNIT/0.01 ML UNIT SQ SCH ×4 (08:14→21:52)
[2017-11-09] MEDS: FUROSEMIDE 20 MG/2 ML VIAL IV SCH ×2 (08:35→15:57)
[2017-11-09] MEDS ORDERED: FUROSEMIDE 20 MG/2 ML VIAL IV ONE (09:02)
[2017-11-09] MEDS: PARoxetine 20 MG TABLET PO SCH (09:37)
[2017-11-09] MEDS: PRAMIPEXOLE 1 MG TABLET PO SCH ×3 (09:37→21:50)
[2017-11-09] MEDS: HEPARIN 5,000 UNIT/ML VIAL SQ SCH ×2 (09:38→21:52)
[2017-11-09] MEDS: VANCOMYCIN 1,500 MG in 0.9 % SODIUM CHLORIDE 500 ML IV SCH ×2 (09:38→21:49)
[2017-11-09] MEDS: cefTRIAXone 1 GM VIAL IV SCH (09:49)
--- NOTE | 2017-11-09 14:16 | Internal Med Progress Note ---
Medical - PN: Subj Patient information: Note initiated : 11/09/17 at 2:13 pm Service Date, if different from initiated Date: [] Patient: Nicole Sherman 77 y/o F admitted on 11/08/17 for Shortness of Breath/CHF. Chief Complaint: [] Interval history: Ms. Sherman is a 77 year old Female with h/o HTN, recent right hip septic arthritis , on IV ABX per ortho, presented to the ER today with complaints of breath that has been going on for the last week to 2 weeks. The patient notes that she has been short of breath at rest especially when she tries to lie down and sleep. She has to use extra number of pillows and wakes up feeling short of breath. The patient has intermittent dizziness especially when she tries to stand up. Otherwise she denies any other complaints. She denies any acute bilateral lower extremity edema, she has a right leg edema since she has had surgery on the right hip. She denies any palpitations chest pain or chest tightness. No syncope or presyncope-like symptoms. She denies any nausea vomiting abdominal pain. She has poor effort tolerance at baseline due to arthritis and recent hip surgery. She usually is just in the bed with minimal activity. But she has noticed that she is more breathless with activity compared to before. She denies any cough fever any GI or symptoms. No new skin rashes or arthralgias , she does have history of chronic osteoarthritis. Patient admits to having some depression which is reasonably controlled on oral medications denies any suicidal ideations. Given that her shortness of breath was acute she was sent to the emergency room for further evaluation. The patient notes that her pressures have been running high over the last couple weeks. The emergency room patient was hemodynamically stable, and saturation around 90 % on room air labs showed globin of 9.5, bnp 919 Chest x ray shows chf, new, EKG done in the ER shows non specific St wave changes ant and lateral leads, no significant change from previous ekg, trop is neg Pt is beign admitted to the hospital under obs status for new onset CHF. 11/09 Patient seen and examined, no acute overnight events. The patient is diuresing well with Lasix however she still needing oxygen. Her oxygen saturation drops down to approximately 85% on room air. She feels significantly better compared to yesterday. Echocardiogram is read. She has normal left ventricle size and function mild left ventricular hypertrophy. Moderate pulmonary hypertension and a dilated IVC. Exam does not reveal any wheezing. Plan to continue diuresis and wean her off oxygen as tolerated. Aggressive pulmonary toilet. Pertinent ROS: Denies headache, dizziness Denies chest pain, palpitations Denies cough or shortness of breath Denies abdominal pain, nausea or vomiting. - Constitutional Vitals: Vital Signs Temp Pulse Resp BP Pulse Ox 98 F 78 16 145/95 96 11/09/17 11:54 11/09/17 07:31 11/09/17 11:54 11/09/17 11:54 11/09/17 11:54 Period Temp Pulse Resp BP Sys/Chavis Pulse Ox Last 24 Hr 97.9 F-98.8 F 73-94 16-18 132-161/63-95 87-96 Intake and Output 11/09/17 11/09/17 11/09/17 05:59 13:59 21:59 Intake Total 980 / 980 400 / 400 Output Total 1575 / 1575 3200 / 3200 Balance -595 / -595 -2800 / -2800 Intake & Output: Intake & Output 11/09/17 11/09/17 11/09/17 05:59 13:59 21:59 Intake Total 980 / 980 400 / 400 Output Total 1575 / 1575 3200 / 3200 Balance -595 / -595 -2800 / -2800 Intake: IV 500 / 500 Vancomycin 1,500 mg In Sodium 500 / 500 Chloride 0.9% 500 ml @ 333.3 mls/hr IV Q12H [facility] Rx#: [id number] Oral 480 / 480 400 / 400 Output: Void Amount 1575 / 1575 3200 / 3200 Other: Meal Dinner Breakfast Percent of Meal Consumed 50% 100% Feeding Ability Independent Stool Size Moderate Stool Color Brown Stool Consistency Formed # Voids 4 1 # Bowel Movements 1 Exam: Constitutional; Afebrile, cooperative, alert, not in distress. Eyes- No icterus, , No periorbital swelling Ears- Ext ear normal, hearing normal to conversation. Neck- Midline trachea, supple Respiratory system: Air Entry equal on both sides, improved bibasilar crackles, patient still had some left basilar crackles. No wheezing. Able to speak full sentences no use of accessory muscles. CVS- Rate rhythm regular, S1,S2 heard, no gallop, no rub. Abdomen- Soft nontender abdomen, no organomegaly, no tenderness, no guarding or rigidity, [employer]IM ROLLER OPERATOR- AOOx3, moving all extremities, no gross focal deficit noted. Medical - PN: Obj Da - Labs CBC & Chem 7: 11/09/17 03:55 11/09/17 03:55 Labs: Abnormal Lab Results 11/09/17 11/09/17 11/08/17 03:55 03:55 07:33 RBC 3.20 L Hgb 8.9 L Hct 28.5 L RDW 15.2 H MPV 7.3 L Lymph % (Auto) George % (Auto) 12.8 H Eos % (Auto) 7.6 H Lymph # (Auto) 0.8 L Potassium 3.1 L Carbon Dioxide 38 H 34 H BUN 6 L 7 L Creatinine 0.5 L Glucose 124 H 152 H Calcium 8.2 L NT-Pro-B Natriuret Pep 919.2 H Globulin 2.1 L 11/08/17 07:33 RBC 3.32 L Hgb 9.5 L Hct 29.7 L RDW 15.5 H MPV Lymph % (Auto) 14.8 L George % (Auto) Eos % (Auto) Lymph # (Auto) 0.8 L Potassium Carbon Dioxide BUN Creatinine Glucose Calcium NT-Pro-B Natriuret Pep Globulin Meds: Medications Acetaminophen (Tylenol) 650 mg PO Q4HP PRN PRN Reason: PAIN/FEVER > 101 Last Admin: 11/09/17 06:55 Dose: 650 mg Albuterol/Ipratropium (Duoneb) 3 ml NEB Q6HRT [facility] Last Admin: 11/09/17 07:25 Dose: 3 ml Carvedilol (Coreg) 6.25 mg PO BIDCC [facility] Ceftriaxone Sodium (Rocephin) 1 gm IV Q24H [facility] Last Admin: 11/09/17 09:49 Dose: 1 gm Dextrose (Dextrose 50%) 0 ml IV UD PRN PRN Reason: Hypoglycemia Diagnostic Test (Pha) (Accu-Chek) 1 each FS ACHS [facility] Last Admin: 11/09/17 08:10 Dose: 1 each Furosemide (Lasix) 40 mg IV BIDD JENNIFER Gabapentin (Neurontin) 300 mg PO HS [facility] Last Admin: 11/08/17 20:26 Dose: 300 mg Glucose (Insta-Glucose) 15 gm PO PRN PRN PRN Reason: Hypoglycemia Heparin Sodium (Porcine) (Heparin) 5,000 unit SQ Q12 [facility] Last Admin: 11/09/17 09:38 Dose: 5,000 unit Heparin Sodium (Porcine) (Heparin Flush) 2 ml IV Q12 [facility] Last Admin: 11/09/17 09:38 Dose: 2 ml Vancomycin HCl 1,500 mg/ (Sodium Chloride) 500 mls @ 333.3 mls/hr IV Q12H [facility] Last Admin: 11/09/17 09:38 Dose: 333 mls/hr Insulin Human Lispro (Humalog) 0 unit SQ ACHS JENNIFER PRN Reason: Protocol Last Admin: 11/09/17 08:14 Dose: Not Given Losartan Potassium (Cozaar) 100 mg PO HS [facility] Last Admin: 11/08/17 20:25 Dose: 100 mg Ondansetron HCl (Zofran) 4 mg IV Q4HP PRN PRN Reason: Nausea And Vomiting Last Admin: 11/08/17 20:59 Dose: 4 mg Paroxetine HCl (Paxil) 40 mg PO DAILY [facility] Last Admin: 11/09/17 09:37 Dose: 40 mg Diclofenac Sodium [ (Voltaren] 2% Gel) 1 dose TOPICAL BIDP PRN PRN Reason: pain Rosuvastatin Calcium ([Crestor] 20 Mg Tab) 1 dose PO HS [facility] Last Admin: 11/08/17 20:27 Dose: Not Given Pramipexole Dihydrochloride (Mirapex) 1.5 mg PO TID [facility] Last Admin: 11/09/17 09:37 Dose: 1.5 mg Sodium Chloride (Saline Flush) 10 ml IV Q8 [facility] Last Admin: 11/09/17 08:38 Dose: 10 ml Vancomycin HCl (Vancomycin Per Pharmacy) 1 order IV UD [facility] Medical - PN: A/P - Time Spent With Patient Total time spent is greater than 50% in coordination of care (as documented) at patient's floor/unit and/or counseling patient: - Narrative A/P Narrative: A/P New onset CHF: Clinically improving, continue IV Lasix. Diuresing well. Wean off oxygen as tolerated. Echo shows preserved left ventricular function. Likely heart failure with preserved ventricular function. Moderate pulmonary hypertension-likely contributing to patient's symptomatology. Diuresis should help. Septic ARthritis: Status post washout, on IV vancomycin and Rocephin will continue same Anemia: Likely anemia of chronic disease follow-up as outpatient. HTN: BP on the higher end of normal, on losartan, will get the echocardiogram , add Coreg 6.25 twice a day. HLD: Continue statin DM: Hold metformin, sliding scale insulin DVT-heparin subcutaneous Diet and carb consistent diet and a cardiac diet Code-full code Medical - PN: Qual - Stroke Symptom Onset Unknown: No - VTE Deep Vein Thrombosis/Pulmonary Embolism Present on Admission: No
[2017-11-09] MEDS: CARVEDILOL 6.25 MG TABLET PO SCH (17:27)
[2017-11-09] MEDS: LOSARTAN 50 MG TABLET PO SCH (21:52)
[2017-11-09] MEDS: GABAPENTIN 300 MG CAPSULE PO SCH (21:52)
[2017-11-09] MEDS: ROSUVASTATIN CALCIUM 20 MG PO SCH (21:54)
[2017-11-10] MEDS: IPRATROPIUM/ALBUTEROL 3 ML AMPUL.NEB NEB SCH ×2 (01:10→07:20)
[2017-11-10] MEDS: ACETAMINOPHEN 325 MG TABLET PO PRN (05:59)
[2017-11-10 06:06] LABS: Basophils # (Auto) 0 K/mcL (0.0-0.3); Basophils % (Auto) 0.7 % (0.0-2.0); Eosinophils # (Auto) 0.4 K/mcL (0.0-0.7); Eosinophils % (Auto) 6.7 % (0.0-7.0); Granulocytes % (Auto) 63.8 % (38.0-78.0); Lymphocytes % (Auto) 16.7 % (15.5-49.0); Mean Cell Volume 88.9 fL (80.0-100.0); Mean Corpuscular HGB Conc 31.4 g/dL (31.0-36.0); Mean Corpuscular Hemoglobin 27.9 pg (26.0-34.0); Monocytes # (Auto) 0.7 K/mcL (0.1-0.9); Monocytes % (Auto) 12.1 % (1.0-12.0); Platelet Count 268 K/mcL (140-440); RBC 3.58 M/mcL (4.00-5.20); Red Cell Distribution Width 15.7 % (11.5-14.5)
[2017-11-10 06:55] LABS: ALT/SGPT 12 U/l (0-40); Albumin/Globulin Ratio 1.6 (1.0-2.3); Alkaline Phosphatase 73 U/L (39-117); Bilirubin,Direct < 0.2 mg/dL (0.0-0.3); Blood Urea Nitrogen 12 mg/dl (8-23); Gamma Glutamyl Transpeptidase 23 U/L (5-36); Uric Acid 3.2 mg/dL (2.5-8.0)
[2017-11-10] MEDS: CARVEDILOL 6.25 MG TABLET PO SCH (07:28)
[2017-11-10] MEDS: FUROSEMIDE 20 MG/2 ML VIAL IV SCH (07:28)
[2017-11-10] MEDS: 0.9 % SODIUM CHLORIDE 10 ML SYRINGE IV SCH ×2 (07:30→09:50)
[2017-11-10] MEDS: INSULIN LISPRO 1 UNIT/0.01 ML UNIT SQ SCH ×2 (07:33→11:58)
--- NOTE | 2017-11-10 09:35 | Discharge Summary ---
Medical - DS: Prov Patient information: Note initiated : 11/10/17 at 9:33 am Service Date, if different from initiated Date: [] Patient: Nicole Sherman 77 y/o F admitted on 11/08/17 for Shortness of Breath/CHF. Chief Complaint: [] Date of admission: 11/08/17 10:20 Discharge date: 11/10/17 Primary care physician: Colleen Pittman Admitting clinician: Kusum Almodovar Consults: 11/08/17 08:56 Consult to Physician [CONS] Stat Comment: Consulting Provider: Kusum Almodovar Reason For Exam: Physician to Consult Discharging clinician: Kusum Almodovar Medical - DS: Meds - Discharge Medications Prescriptions: Carvedilol [Coreg] 6.25 mg PO BIDCC #60 tab Furosemide [Lasix] 20 mg PO DAILY #30 tab Potassium Chloride 10 meq PO DAILY #30 capsule.er Active and Home Medications: Home Medications losartan 100 mg tablet 100 mg PO HS 10/21/15 [History Confirmed 11/08/17 Last Taken 11/07/17 19:00] paroxetine 40 mg tablet 40 mg PO QHS 10/21/15 [History Confirmed 11/08/17 Last Taken 11/07/17 19:00] rosuvastatin 20 mg tablet 20 mg PO HS 04/23/17 [History Confirmed 11/08/17 Last Taken 11/07/17 19:00] gabapentin 300 mg capsule 300 mg PO HS 90 Days #360 08/27/17 [History Confirmed 11/08/17 Last Taken 11/07/17 19:00] Diclofenac Sodium [Voltaren] 2 g TOPICAL BIDP PRN 09/20/17 [History Confirmed Last Taken 11/02/17] metFORMIN [Glucophage] 1,000 mg PO BIDCC 09/20/17 [History Confirmed 11/08/17 Last Taken 11/08/17 07:00] Pramipexole [Mirapex] 3 mg PO BID 09/25/17 [History Confirmed 11/08/17 Last Taken Unknown] Vancomycin/0.9 % Sod Chloride [Vancomycin 1 G/100Ml-0.9% NaCl] 1 gm IV DAILY # 60 plast..bag 10/17/17 [Rx Confirmed 11/08/17 Last Taken 11/08/17 09:00] cefTRIAXone NA/DEXTROSE,ISO [Ceftriaxone 1 gm Piggyback] 1 gm IV DAILY #42 piggy 10/17/17 [Rx Confirmed 11/08/17 Last Taken 11/08/17 09:00] Mirapex 1.5 mg PO QNOON 11/08/17 [History Confirmed 11/08/17 Last Taken 07:00] Medical - DS: Hosp Hospital course: Ms. Sherman is a 77 year old Female with h/o HTN, recent right hip septic arthritis , on IV ABX per ortho, presented to the ER with complaints of breath that has been going on for the last week to 2 weeks. The patient notes that she has been short of breath at rest especially when she tries to lie down and sleep. She has to use extra number of pillows and wakes up feeling short of breath. The patient has intermittent dizziness especially when she tries to stand up. Otherwise she denies any other complaints. She denies any acute bilateral lower extremity edema, she has a right leg edema since she has had surgery on the right hip. She denies any palpitations chest pain or chest tightness. No syncope or presyncope-like symptoms. She denies any nausea vomiting abdominal pain. She has poor effort tolerance at baseline due to arthritis and recent hip surgery. She usually is just in the bed with minimal activity. But she has noticed that she is more breathless with activity compared to before. She denies any cough fever any GI or symptoms. No new skin rashes or arthralgias , she does have history of chronic osteoarthritis. Patient admits to having some depression which is reasonably controlled on oral medications denies any suicidal ideations. Given that her shortness of breath was acute she was sent to the emergency room for further evaluation. The patient notes that her pressures have been running high over the last couple weeks. The emergency room patient was hemodynamically stable, and saturation around 90 % on room air labs showed globin of 9.5, bnp 919 Chest x ray shows chf, new, EKG done in the ER shows non specific St wave changes ant and lateral leads, no significant change from previous ekg, trop is neg CHF- New onset CHF with preserved systolic function, echo done showed She has normal left ventricle size and function mild left ventricular hypertrophy. Moderate pulmonary hypertension and a dilated IVC. She responded to lasix well, she will be discharged with 20 mg po lasix and 10 KCL supplement (her K was 3.1 on presentation 3.5 at discharge) she may benefit from stress test as outpatient vs cardiology eval to determine the etiology of her CHF. HTN: BP has been high during this visit, pt has been started on coreg 6.25 bid, she is on losartan, further titration as outpatient by PCP Hypoxia/ Pulmonary HTN/ OSBALDO: Pt has some hypoxia during the hospital stay, which resolved with diuresis, she still does have some nocturnal hypoxia, which would improved with better compliance with her CPAP machine. She has OSBALDO and has not been compliant with the use of the device. She is planning on being more complaint her Echo showed moderate to sever pulm htn, which may also be contributing to her hypoxia. She has multiple risk factors at this time for pulm htn, and would benefit from outpatient eval for same. Will leave this at the discretion of PCP, but compliance with her CPAP should help. The rest of the stay in the body was uneventful. At the time of discharge patient is tolerating p.o. diet well ambulating. She will continue all her home medications as before no changes have been made that. In addition she will get prescription for Coreg, potassium supplement and Lasix. Continue her antibiotic regimen for septic arthritis as before. Discharge diagnosis: chf new onset - Time Spent with Patient Total time spent providing and/or coordinating discharge services: Greater than 30 minutes Medical - DS: Exam - Constitutional Vitals: Vital Signs Temp Pulse Pulse Resp BP BP Pulse Ox 11/10/17 07:54 98.4 F 24 H 152/90 94 11/10/17 07:19 85 18 11/10/17 05:18 88 134/64 95 11/10/17 04:00 98.4 F 26 H 134/64 96 11/10/17 01:26 97.9 F 87 20 132/68 96 11/09/17 21:42 98.4 F 79 20 120/60 96 11/09/17 19:33 77 16 95 11/09/17 19:15 73 98 11/09/17 16:00 92 H 95 11/09/17 15:32 97.9 F 16 132/77 96 11/09/17 15:30 93 H 96 11/09/17 15:16 83 132/77 97 11/09/17 15:00 87 99 11/09/17 14:30 88 94 11/09/17 14:28 85 16 11/09/17 14:00 92 H 89 L 11/09/17 13:30 94 H 96 11/09/17 11:54 98 F 16 145/95 96 11/09/17 11:48 93 H 145/95 96 Intake and Output 11/09/17 11/10/17 11/10/17 21:59 05:59 13:59 Intake Total 300 / 300 800 / 800 200 / 200 Output Total 925 / 925 300 / 300 675 / 675 Balance -625 / -625 500 / 500 -475 / -475 Intake: IV 500 / 500 Vancomycin 1,500 mg In Sodium 500 / 500 Chloride 0.9% 500 ml @ 333.3 mls/hr IV Q12H [facility] Rx#: [id number] Oral 300 / 300 300 / 300 200 / 200 Output: Void Amount 925 / 925 300 / 300 675 / 675 Other: Meal snack Breakfast Percent of Meal Consumed 100% 100% Feeding Ability Independent Stool Size Large Stool Color Brown Stool Consistency Formed # Voids 2 1 # Bowel Movements 1 Weight 159 lb 9.6 oz Additional comments: Constitutional; Afebrile, cooperative, alert, not in distress. Eyes- No icterus, , No periorbital swelling Ears- Ext ear normal, hearing normal to conversation. Neck- Midline trachea, supple Respiratory system: Air Entry equal on both sides, No crackles or wheezing, no rhonchi. CVS- Rate rhythm regular, S1,S2 heard, no gallop, no rub. Abdomen- Soft nontender abdomen, no organomegaly, no tenderness, no guarding or rigidity, [employer]- AOOx3, moving all extremities, no gross focal deficit noted. Medical - DS: Data Labs on day of discharge: Labs from last 24 hours 11/10/17 11/10/17 04:00 04:00 WBC 6.1 RBC 3.58 L Hgb 10.0 L Hct 31.8 L MCV 88.9 MCH 27.9 MCHC 31.4 RDW 15.7 H Plt Count 268 MPV 7.4 Gran % 63.8 Lymph % (Auto) 16.7 [place] % (Auto) 12.1 H Eos % (Auto) 6.7 Baso % (Auto) 0.7 Gran # 3.9 Lymph # (Auto) 1.0 L [place] # (Auto) 0.7 Eos # (Auto) 0.4 Baso # (Auto) 0 Sodium 141 Potassium 3.5 Chloride 95 L Carbon Dioxide 38 H Anion Gap 8.0 BUN 12 Creatinine 0.7 GFR Calculation 84 Glucose 122 H Uric Acid 3.2 Calcium 9.0 Phosphorus 4.8 H Magnesium 2.0 Total Bilirubin 0.5 Direct Bilirubin < 0.2 GGT 23 AST 15 ALT 12 Alkaline Phosphatase 73 Lactate Dehydrogenase 259 H Total Protein 6.5 Albumin 4.0 Globulin 2.5 Albumin/Globulin Ratio 1.6 Triglycerides 141 Medical - DS: A/P - Patient/Caregiver Discharge Instructions Activity: increase activity as tolerated Diet: Cardiac Additional Instructions: You have been diagnosed with new onset congestive heart failure. Please take your medications as prescribed. I have started you on Lasix 20 mg once a day, potassium supplement 10 mg once a day. Your blood pressure has been high and I have therefore added Coreg 6.25 mg twice a day to your blood pressure medication resume. Please follow-up with her regular doctor who will titrate medications further. The echocardiogram done showed that you have elevated pulmonary pressures. This can be seen in patients with chronic obstructive pulmonary disease, heart failure as well as sleep apnea. There are other risk for this problem. His revie with your care provider with regards to further investigations. You have a history of sleep apnea, please consider using the CPAP machine. Obstructive sleep apnea is also risk factor for pulmonary hypertension. Continue taking her antibiotics as before. Follow-up with your primary care provider in 1 week. Go to the emergency room if worsening shortness of breath, chest pain, dizziness fever or any other acute concerning symptom. - Follow up Plan Follow up with: Colleen Pittman MD [Primary Care Provider] - 11/14/17 9:30 am Disposition: Home, Self-Care Prognosis: Good Rehab Potential: Good I certify that the patient requires SNF services: No Overall status at discharge: patient is progressing back to baseline Medical - DS: Qual - VTE Deep Vein Thrombosis/Pulmonary Embolism Present on Admission: No
[2017-11-10] MEDS: cefTRIAXone 1 GM VIAL IV SCH (09:50)
[2017-11-10] MEDS: HEPARIN 5,000 UNIT/ML VIAL SQ SCH (09:51)
[2017-11-10] MEDS: PARoxetine 20 MG TABLET PO SCH (09:54)
[2017-11-10] MEDS: PRAMIPEXOLE 1 MG TABLET PO SCH (09:57)
[2017-11-10] MEDS: VANCOMYCIN 1,500 MG in 0.9 % SODIUM CHLORIDE 500 ML IV SCH (09:58)
== END 2017-11-10 14:05 | disposition home or self-care (01) ==
LOC: ICU 07:00 → ED 07:00 → ICU 10:24
PROVIDERS: ADMIT Internal Medicine; ATTEND Internal Medicine